=== PATIENT | male | born 1945 | race Hispanic/Latino ===

== ENCOUNTER 2017-11-17 12:49 | Emergency (ER) | payer MEDICARE, OTHER ==
--- NOTE | 2017-11-17 13:26 | ED PDOC ---
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 Patient reports that prior to arrival, he was walking his dogs when he got caught in the leash and fell forward into brick stairs and hit the ledge of the stair. He reports pain to the nose associated with mild headache. Patient states that immediately following the fall, he has had epistaxis from both nares that persists. Patient indicates having full recollection of the event. 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 Tetanus UTD. PMD: Dr. Hutchins - Fall Fall:Prior To Injury: Tripped Past Medical History Reviewed: Historical Data, Nursing Documentation, Vital Signs Vital Signs: Last Vital Signs Temp 98.3 F 11/17/17 19:17 Pulse 89 11/17/17 19:17 Resp 18 11/17/17 19:17 BP 140/90 11/17/17 19:17 Pulse Ox 98 11/17/17 19:26 - Medical History Other PMH: aortic stenosis, gout, HTN, BPH - Surgical History Other surgeries: Right knee replacement, left hip replacement, BPH procedure - Family History Family History: States: Unknown Family Hx - Social History Current smoker - smoking cessation education provided: No Alcohol: Other (Drinks wine daily with dinner) Drugs: Denies - Allergies Allergies/Adverse Reactions: Allergies Allergy/AdvReac Type Severity Reaction Status Date / Time No Known Allergies Allergy Verified 11/17/17 13:14 Review of Systems ROS Statement: Except As Marked, All Systems Reviewed And Found Negative Constitutional: Negative for: Other (LOC) Eyes: Negative for: Vision Change ENT: Positive for: Nose Pain, Nose Discharge (epistaxis) Cardiovascular: Negative for: Chest Pain Respiratory: Negative for: Shortness of Breath Gastrointestinal: Negative for: Abdominal Pain Neurological: Positive for: Headache. Negative for: Dizziness Physical Exam - Reviewed Nursing Documentation Reviewed: Yes Vital Signs Reviewed: Yes - Physical Exam Comments: APPEARS: (+) Non-toxic, but (+) Uncomfortable. Dried blood to face noted. EYE EXAM (+) Normal appearance, (+) EOM intact and painless, (+) PERRL. (-) Periorbital swelling, (-) Periorbital tenderness (-) conjunctival hyphema or hemorrhage ENT: (+) Pharynx Is clear with uvula midline, (+) Dentition intact and nontender , (+) TMs: non-bulging and non-erythematous (-) hemotympanum. CARDIOVASCULAR/CHEST: (+) Regular Rate, Rhythm RESPIRATORY: Lungs clear to auscultation bilaterally (+) Normal Breath Sounds. (-) Wheezing, (-) Respiratory Distress (-) Accessory Muscle Use Abdomen: Soft, non-tender, non-distended (-) guarding NOSE: Obvious deformity of nasal bridge with considerable depression and overlying 1cm horizontal laceration to nasal bridge (+) tenderness (+) swelling. Both nares have dried blood with continued active bleeding. Visualization of nares minimal. NEURO AND PSYCH: Mental status as above; (-) focal findings. Gait steady, speech clear. Cerebellar tests intact. Cranial nerves II- XII grossly intact. Strength 5/5 throughout. (-) facial asymmetry (-) aphasia - Laboratory Results Result Diagrams: 11/17/17 18:22 11/17/17 18:22 - ECG O2 Sat by Pulse Oximetry: 98 (RA) Pulse Ox Interpretation: Normal Medical Decision Making Medical Decision Making: Initial Impression: Nasal fracture status post fall, r/o additional facial fractures Initial Plan: CT head CT maxillofacial Tramdadol 100mg PO 1400 Patient reports improvement of pain at this time. Awaiting CT evaluation. [address] without incident. 1500 PROCEDURE: CT HEAD WITHOUT CONTRAST. HISTORY: s/p fall COMPARISON: None available. TECHNIQUE: Axial computed tomography images were obtained through the head/brain without intravenous contrast. Radiation dose: Total exam DLP = 949.02 mGy-cm. This CT exam was performed using one or more of the following dose reduction techniques: Automated exposure control, adjustment of the mA and/or kV according to patient size, and/or use of iterative reconstruction technique. FINDINGS: HEMORRHAGE: No intracranial hemorrhage. BRAIN: No mass effect or edema. No atrophy or chronic microvascular ischemic changes. VENTRICLES: Unremarkable. No hydrocephalus. CALVARIUM: Unremarkable. PARANASAL SINUSES: There are multiple nasal bone fracture and nasal septum fracture seen. There is also fracture at the medial wall of the right maxillary sinus associated with small hemorrhage in the right maxillary sinus. Mucosal thickening and small air- fluid level is also noted in the ethmoid and left maxillary sinuses. MASTOID AIR CELLS: Unremarkable as visualized. No inflammatory changes. OTHER FINDINGS: None. IMPRESSION: No evidence of acute intracranial hemorrhage intracranial collection mass effect or midline shift. Multiple facial bone fractures. PROCEDURE: CT MAXILLOFACIAL BONES WITHOUT CONTRAST HISTORY: s/p fall COMPARISON: None TECHNIQUE: Contiguous axial CT images of the maxillofacial bones were obtained. Coronal and sagittal reformats were generated. Radiation dose: Total exam DLP = 888.75 mGy-cm. This CT exam was performed using one or more of the following dose reduction techniques: Automated exposure control, adjustment of the mA and/or kV according to patient size, and/or use of iterative reconstruction technique. FINDINGS: NASAL BONES: There are multiple displaced nasal bone fracture seen. There is also displaced fracture at the nasal process of the right maxillary bone. ORBITS: No evidence of acute displaced fracture in the orbits PARANASAL SINUSES/ MASTOIDS: There are mildly displaced fracture at the medial wall of the right maxillary sinus. There is also mildly displaced fracture at the anterior wall of the right maxillary sinus. Air-fluid level noted in the right maxillary likely due to small hemorrhage. There is also possible small hemorrhage in the ethmoid sinuses. MAXILLA: Unremarkable. MANDIBLE/ TEMPOROMANDIBULAR JOINTS: Unremarkable. SKULL BASE: Unremarkable. TEMPORAL BONES: Middle ears and mastoid grossly unremarkable. OTHER FINDINGS: There are a displaced fracture at the nasal septum noted also. IMPRESSION: Multiple nasal bone and nasal septum fractures. Mildly displaced right maxillary sinus medial and anterior wall fractures. Nasal cavity hemorrhage and small hemorrhage at the right maxillary sinus. Small air-fluid level in the sphenoid and left maxillary sinus. Consult placed to [facility]. 15:[address] Bauer, the OMFS attending physician at [facility] in [place]. He states no immediate intervention is required and recommends treating with afrin nasal spray, nasal packing, and nasal splint. Also recommended Keflex PO treatment and to follow up at [place] [facility] [place] (11/22/17) or Sunday (11/23). 15:45 Dr. Merrill spoke with Dr. Bauer and recommended ENT consult for nasal packing and nasal splint placement. Repeat BP: 144/92 Repeat HR: 89 17:00 Consult placed for ENT specialist, Dr. Jb Latif. Awaiting call back and consult. On exam, patient remains AAOx3, in no acute distress. On exam, neck is supple, lungs CTA, cardiac RRR, abdomen is soft and non-tender, neuro exam shows no focal findings. Pain well controlled. [address] Latif, who states patient may need to go to OR for sedated nasal packing. 1800 IV access Normal saline 1L bolus CBC, CMP Type and Screen PTT/PT CXR EKG NPO Patient treated with Afrin nasal spray. [address] Latif, patient needs higher level of care for his facial injury at this time. States he discussed case with Dr Zuleta (ENT/ facial plastics) at [facility] in [place], who is willing to evaluate patient. 1835 EKG: SR @ 90bpm (-) ST elevation, QTc 469 1840 Patient in XR. 1855 Labs reviewed and grossly unremarkable. CXR: no acute disease as read by Brooke KEITA and Garfield DOBBINS MD ER to ER transfer arranged. Accepting ED MD is Dr. Reyes at [facility]. Risks and benefits of transfer discussed with patient. Patient agreeable to transfer at this time. Consent obtained for transfer. Vitals stable. Scribe Attestation: Documented by Kwasi Hutchins acting as a scribe for Maribel ESCAMILLA. Provider Scribe Attestation: All medical record entries made by the Scribe were at my direction and personally dictated by me. I have reviewed the chart and agree that the record accurately reflects my personal performance of the history, physical exam, medical decision making, and the department course for this patient. I have also personally directed, reviewed, and agree with the discharge instructions and disposition. Disposition - Clinical Impression Clinical Impression: Maxillary sinus fracture, Open displaced fracture of nasal bone, Fall Counseled Patient/Family Regarding: Studies Performed, Diagnosis, Need For Followup - Disposition Disposition Time: 18:58 Condition: FAIR - POA Present On Arrival: Falls Or Trauma Results - Lab Results Lab Results: 11/17/17 11/17/17 11/17/17 18:22 18:22 18:22 WBC 9.7 RBC 3.56 L Hgb 12.8 Hct 37.2 MCV 104.5 H MCH 35.9 H MCHC 34.3 RDW 14.2 Plt Count 181 MPV 7.8 Neut % (Auto) 83.3 H Lymph % (Auto) 10.8 L [place] % (Auto) 5.6 Eos % (Auto) 0.1 Baso % (Auto) 0.2 Neut # (Auto) 8.1 H Lymph # (Auto) 1.1 [place] # (Auto) 0.5 Eos # (Auto) 0.0 Baso # (Auto) 0.0 PT 10.5 INR 1.0 APTT 29.1 Sodium 140 Potassium 3.8 Chloride 99 Carbon Dioxide 25 Anion Gap 20 BUN 20 Creatinine 0.7 L Est GFR ( Amer) > 60 Est GFR (Non-Af Amer) > 60 Random Glucose 119 H Calcium 9.9 Total Bilirubin 0.7 AST 42 ALT 38 Alkaline Phosphatase 79 Total Protein 8.1 Albumin 4.6 Globulin 3.6 Albumin/Globulin Ratio 1.3 Blood Type Antibody Screen BBK History Checked 11/17/17 18:15 WBC RBC Hgb Hct MCV MCH MCHC RDW Plt Count MPV Neut % (Auto) Lymph % (Auto) [place] % (Auto) Eos % (Auto) Baso % (Auto) Neut # (Auto) Lymph # (Auto) [place] # (Auto) Eos # (Auto) Baso # (Auto) PT INR APTT Sodium Potassium Chloride Carbon Dioxide Anion Gap BUN Creatinine Est GFR ( Amer) Est GFR (Non-Af Amer) Random Glucose Calcium Total Bilirubin AST ALT Alkaline Phosphatase Total Protein Albumin Globulin Albumin/Globulin Ratio Blood Type A POSITIVE Antibody Screen Negative BBK History Checked No verified bt
--- NOTE | 2017-11-17 14:52 | CT ---
PROCEDURE: CT HEAD WITHOUT CONTRAST. HISTORY: s/p fall COMPARISON: None available. TECHNIQUE: Axial computed tomography images were obtained through the head/brain without intravenous contrast. Radiation dose: Total exam DLP = 949.02 mGy-cm. This CT exam was performed using one or more of the following dose reduction techniques: Automated exposure control, adjustment of the mA and/or kV according to patient size, and/or use of iterative reconstruction technique. FINDINGS: HEMORRHAGE: No intracranial hemorrhage. BRAIN: No mass effect or edema. No atrophy or chronic microvascular ischemic changes. VENTRICLES: Unremarkable. No hydrocephalus. CALVARIUM: Unremarkable. PARANASAL SINUSES: There are multiple nasal bone fracture and nasal septum fracture seen. There is also fracture at the medial wall of the right maxillary sinus associated with small hemorrhage in the right maxillary sinus. Mucosal thickening and small air-fluid level is also noted in the ethmoid and left maxillary sinuses. MASTOID AIR CELLS: Unremarkable as visualized. No inflammatory changes. OTHER FINDINGS: None. IMPRESSION: No evidence of acute intracranial hemorrhage intracranial collection mass effect or midline shift. Multiple facial bone fractures.
--- NOTE | 2017-11-17 15:03 | CT ---
PROCEDURE: CT MAXILLOFACIAL BONES WITHOUT CONTRAST HISTORY: s/p fall COMPARISON: None TECHNIQUE: Contiguous axial CT images of the maxillofacial bones were obtained. Coronal and sagittal reformats were generated. Radiation dose: Total exam DLP = 888.75 mGy-cm. This CT exam was performed using one or more of the following dose reduction techniques: Automated exposure control, adjustment of the mA and/or kV according to patient size, and/or use of iterative reconstruction technique. FINDINGS: NASAL BONES: There are multiple displaced nasal bone fracture seen. There is also displaced fracture at the nasal process of the right maxillary bone. ORBITS: No evidence of acute displaced fracture in the orbits PARANASAL SINUSES/ MASTOIDS: There are mildly displaced fracture at the medial wall of the right maxillary sinus. There is also mildly displaced fracture at the anterior wall of the right maxillary sinus. Air-fluid level noted in the right maxillary likely due to small hemorrhage. There is also possible small hemorrhage in the ethmoid sinuses. MAXILLA: Unremarkable. MANDIBLE/ TEMPOROMANDIBULAR JOINTS: Unremarkable. SKULL BASE: Unremarkable. TEMPORAL BONES: Middle ears and mastoid grossly unremarkable. OTHER FINDINGS: There are a displaced fracture at the nasal septum noted also. IMPRESSION: Multiple nasal bone and nasal septum fractures. Mildly displaced right maxillary sinus medial and anterior wall fractures. Nasal cavity hemorrhage and small hemorrhage at the right maxillary sinus. Small air-fluid level in the sphenoid and left maxillary sinus.
[2017-11-17] MEDS: Sodium Chloride 0.9% 1,000 ML IV SCH ×2 (18:33→19:44)
[2017-11-17 18:36] LABS: BASO % 0.2 % (0.0-2.0); EOS % 0.1 % (0.0-4.0); HEMOGLOBIN 12.8 g/dL (12.0-18.0); LYMPH # 1.1 K/uL (1.0-4.3); LYMPH % 10.8 % (20.0-40.0); MEAN CELL VOLUME 104.5 fl (80.0-94.0); MEAN CORPUSCULAR HEMOGLOBIN 35.9 pg (27.0-31.0); MEAN CORPUSCULAR HGB CONC 34.3 g/dL (33.0-37.0); MEAN PLATELET VOLUME 7.8 fl (7.2-11.7); MONO # 0.5 K/uL (0.0-0.8); MONO % 5.6 % (0.0-10.0); NEUT # 8.1 K/uL (1.8-7.0); NEUT % 83.3 % (50.0-75.0); RBC 3.56 Mil/uL (4.40-5.90); RED CELL DISTRIBUTION WIDTH 14.2 % (11.5-14.5); WHITE BLOOD COUNT 9.7 K/uL (4.8-10.8)
[2017-11-17 18:47] LABS: ALB/GLOB RATIO 1.3 (1.0-2.1); ALBUMIN 4.6 g/dL (3.5-5.0); ALT/SGPT 38 U/L (21-72); AST/SGOT 42 U/L (17-59); BLOOD UREA NITROGEN 20 mg/dl (9-20); CALCIUM 9.9 mg/dL (8.4-10.2); GFR AFRICAN-AMERICAN > 60; GFR NON-AFRICAN AMERICAN > 60
[2017-11-17 18:52] LABS: PARTIAL THROMBOPLASTIN TIME 29.1 Seconds (25.6-37.1); PROTHROMBIN TIME 10.5 Seconds (9.8-13.1)
[2017-11-17 19:18] VITALS: RESP 18
[2017-11-17] MEDS ORDERED: Acetaminophen-Codeine 300/30 mg Tab PO STA (19:36)
[2017-11-18 01:30] VITALS: BP 141/78; PULSE 70; TEMP 98; O2SAT 99
--- NOTE | 2017-11-18 09:03 | RAD ---
HISTORY: PRE-OPERATIVE COMPARISON: No prior. TECHNIQUE: Chest PA and lateral FINDINGS: LUNGS: Small bibasilar opacities likely atelectasis. PLEURA: No significant pleural effusion identified. No pneumothorax apparent. CARDIOVASCULAR: Normal. OSSEOUS STRUCTURES: Diffuse osteopenia noted. No evidence of acute pathology. VISUALIZED UPPER ABDOMEN: Normal. OTHER FINDINGS: None. IMPRESSION: No active disease.
--- NOTE | 2017-11-19 14:30 | CARD ---
APPROVED REPORT EKG Measurement Heart [id number] CA 100P [id number] <Conclusion> Sinus rhythm with short CA with premature atrial complexes Left ventricular hypertrophy with repolarization abnormality Abnormal ECG
== END 2017-11-17 19:45 | disposition short-term general hospital (02) ==
LOC: H.ER 12:49
DX: S02.2XXA Fracture of nasal bones, initial encounter for closed fracture (principal); S02.401A Maxillary fracture, unspecified side, initial encounter for closed fracture; W01.198A Fall on same level from slipping, tripping and stumbling with subsequent striking against other object, initial encounter; Y93.K1 Activity, walking an animal; I10 Essential (primary) hypertension; Z96.642 Presence of left artificial hip joint; Z96.651 Presence of right artificial knee joint
CPT/HCPCS: 70450; 70486; 71046; 80053; 85025; 85610; 85730; 86850; 86900; 93005; 99285; J7030